=== PATIENT | male | born 1995 ===

== ENCOUNTER 2018-06-20 15:25 | Emergency (ER) | payer SELFPAY ==
[2018-06-20 15:31] VITALS: BP 133/90
--- NOTE | 2018-06-20 16:03 | ER Report ---
History and Physical Time Seen By MD: 15:56 Hx. of Stated Complaint: hives starting 4 days ago starting on left arm. pt now has generalized hives waist up. HPI/ROS CHIEF COMPLAINT: rash HISTORY OF PRESENT ILLNESS: Pt started with a round rash on left antecubital area o1-2 week ago. Started 4 days ago with diffuse rash on arms, back and torso. Rash is not itching. pt has had a cold for last day or so of occasional cough, runny nose and some nausea. No fevers. no chills. Rash is not itchy. REVIEW OF SYSTEMS: Constitutional: No fever, no chills. Eyes: No discharge. ENT: + runny nose, No sore throat. Cardiovascular: No chest pain, no palpitations. Respiratory: + cough, no shortness of breath. Gastrointestinal: No abdominal pain, no vomiting. Genitourinary: No hematuria. Musculoskeletal: No back pain. Skin: + rashes. Neurological: No headache. Allergies: Coded Allergies: Pertussis Vaccines (Verified Allergy, Severe, 06/20/18) Home Meds Active Scripts Ketoconazole (KETOCONAZOLE) 15 Gm Cream..g., 15 GM TP BID, #15 TUBE Apply to left anticubital large ring lesion twice a day for 2 weeks Prov:KAREL SOUZA V DO 06/20/18 Itraconazole (ITRACONAZOLE) 100 Mg Capsule, 200 MG PO DAILY for 7 Days, #14 CAPSULE Prov:LIBBYKAREL Peggy DO 06/20/18 Past Medical/Surgical History pmhx: neg Pshx: ankle surgery Reviewed Nurses Notes: Yes Hx Smoking: No Hx Alcohol Use: Yes Constitutional Vital Sign - Last 24 Hours 06/20/18 15:31 Temp 98.3 Pulse 102 Resp 18 B/P (MAP) 133/90 Pulse Ox 96 O2 Delivery Room Air Physical Exam General Appearance: The patient is alert, has no immediate need for airway protection and no signs of toxicity. Eyes: Pupils equal and round no pallor or injection, EOMI ENT: no pharyngeal erythema or exudates, Mucous membranes are moist, TM are nl b/l Respiratory: There are no retractions, lungs are clear to auscultation. Cardiovascular: Regular rate and rhythm. pulses are equal and symmetrical Gastrointestinal: Abdomen is soft and non tender, no masses, bowel sounds normal, no guarding, no rigidity or rebound Neurological: Cranial nerves II-XII grossly intact, no sensory or motor loss Skin: Warm and dry, + round raised erythematous boarder rash on left antecubital area that measures 2cm diameter, diffuse red macular papular rash diffuse neck, torso, extremities; rash is not in groin or scalp or palms. Musculoskeletal: Neck is supple non tender, no vertebral tenderness Extremities are nontender, non swollen and have full range of motion. DIFFERENTIAL DIAGNOSIS: After history and physical exam differential diagnosis was considered for tinea corporis, dermatophtid reaction, urticaria, viral examthem, eczema Medical Decision Making Data Points Result Diagram: 06/20/18 1604 06/20/18 1604 Laboratory Hematology Test 06/20/18 15:48 06/20/18 16:04 Influenza Virus Type A (PCR) Negative (NEGATIVE) Influenza Virus Type B (PCR) Negative (NEGATIVE) Red Blood Count 5.50 M/uL (4.00-5.60) Mean Corpuscular Volume 87.3 fL (80.0-96.0) Mean Corpuscular Hemoglobin 30.3 pg (26.0-33.0) Mean Corpuscular Hemoglobin Concent 34.7 g/dL (32.0-36.0) Red Cell Distribution Width 13.9 % (11.5-14.5) Mean Platelet Volume 7.8 fL (7.2-11.1) Neutrophils (%) (Auto) 64.8 % (39.4-72.5) Lymphocytes (%) (Auto) 25.6 % (17.6-49.6) Monocytes (%) (Auto) 7.9 % (4.1-12.4) Eosinophils (%) (Auto) 1.1 % (0.4-6.7) Basophils (%) (Auto) 0.6 % (0.3-1.4) Nucleated RBC Relative Count (auto) 0.0 /100WBC Neutrophils # (Auto) 4.4 K/uL (2.0-7.4) Lymphocytes # (Auto) 1.7 K/uL (1.3-3.6) Monocytes # (Auto) 0.5 K/uL (0.3-1.0) Eosinophils # (Auto) 0.1 K/uL (0.0-0.5) Basophils # (Auto) 0.0 K/uL (0.0-0.1) Nucleated RBC Absolute Count (auto) 0.00 K/uL Sodium Level 139 mmol/L (137-145) Potassium Level 3.8 mmol/L (3.5-5.0) Chloride Level 99 mmol/L (98-107) Carbon Dioxide Level 33 mmol/L (22-30) Blood Urea Nitrogen 14 mg/dl (9-21) Creatinine 1.10 mg/dl (0.66-1.25) Glomerular Filtration Rate Calc > 60.0 Random Glucose 131 mg/dl (75-110) Calcium Level 9.3 mg/dl (8.4-10.2) Phosphorus Level 2.9 mg/dl (2.5-4.5) Albumin 4.5 g/dl (3.5-5.0) Chemistry Test 06/20/18 15:48 06/20/18 16:04 Influenza Virus Type A (PCR) Negative (NEGATIVE) Influenza Virus Type B (PCR) Negative (NEGATIVE) White Blood Count 6.8 k/uL (4.5-11.0) Red Blood Count 5.50 M/uL (4.00-5.60) Hemoglobin 16.7 g/dL (14.0-18.0) Hematocrit 48.0 % (42.0-52.0) Mean Corpuscular Volume 87.3 fL (80.0-96.0) Mean Corpuscular Hemoglobin 30.3 pg (26.0-33.0) Mean Corpuscular Hemoglobin Concent 34.7 g/dL (32.0-36.0) Red Cell Distribution Width 13.9 % (11.5-14.5) Platelet Count 244 K/uL (150-450) Mean Platelet Volume 7.8 fL (7.2-11.1) Neutrophils (%) (Auto) 64.8 % (39.4-72.5) Lymphocytes (%) (Auto) 25.6 % (17.6-49.6) Monocytes (%) (Auto) 7.9 % (4.1-12.4) Eosinophils (%) (Auto) 1.1 % (0.4-6.7) Basophils (%) (Auto) 0.6 % (0.3-1.4) Nucleated RBC Relative Count (auto) 0.0 /100WBC Neutrophils # (Auto) 4.4 K/uL (2.0-7.4) Lymphocytes # (Auto) 1.7 K/uL (1.3-3.6) Monocytes # (Auto) 0.5 K/uL (0.3-1.0) Eosinophils # (Auto) 0.1 K/uL (0.0-0.5) Basophils # (Auto) 0.0 K/uL (0.0-0.1) Nucleated RBC Absolute Count (auto) 0.00 K/uL Glomerular Filtration Rate Calc > 60.0 Calcium Level 9.3 mg/dl (8.4-10.2) Phosphorus Level 2.9 mg/dl (2.5-4.5) Albumin 4.5 g/dl (3.5-5.0) ED Course/Re-evaluation ED Course check labs Labs stable. Will d/c pt home for treatment of tinea corporis with possible dermatophtid reaction (ID). 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 Decision to Disposition Date: Jun 20, 2018 Decision to Disposition Time: 16:46 Depart Departure Latest Vital Signs Vital Signs Date Time Temp Pulse Resp B/P (MAP) Pulse Ox O2 Delivery O2 Flow Rate FiO2 06/20/18 15:31 98.3 102 18 133/90 96 Room Air Impression: Primary Impression: Tinea corporis Additional Impressions: Dermatophytid Id reaction Condition: Condition Unchanged Disposition: HOME OR SELF-CARE New Scripts Itraconazole (ITRACONAZOLE) 100 Mg Capsule 200 MG PO DAILY for 7 Days, #14 CAPSULE Prov: KAREL SOUZA V DO 06/20/18 Ketoconazole (KETOCONAZOLE) 15 Gm Cream..g. 15 GM TP BID for 14 Days, #15 TUBE 1 Refill Prov: KAREL SOUZA V DO 06/20/18 Ketoconazole (KETOCONAZOLE) 15 Gm Cream..g. 15 GM TP BID, #15 TUBE Apply to left anticubital large ring lesion twice a day for 2 weeks Prov: KAREL SOUZA V DO 06/20/18 Itraconazole (ITRACONAZOLE) 100 Mg Capsule 200 MG PO DAILY for 7 Days, #14 CAPSULE Prov: LAURORA,KAREL V DO 06/20/18 Patient Instructions: Tinea Corporis (ED) Additional Instructions: You have a fungal infection. Apply Ketoconazole cream to the larger lower brule area in left arm for 2 weeks. Take itraconazole 200mg pill once a day for 7 days. Symptoms should improve in next 2-3 weeks. Return for any new symptoms Problem Qualifiers KAREL SOUZA DO Jun 20, 2018 16:03
[2018-06-20 16:12] LABS: PLATELET COUNT, AUTOMATED 244 K/uL (150-450)
[2018-06-20] MEDS ORDERED: FLUCONAZOLE 150 MG TAB PO ONE (16:45)
[2018-06-20] MEDS ORDERED: ITRA100C9 PO ×2 (16:51→16:58)
[2018-06-20] MEDS ORDERED: KETC15T TP ×2 (16:51→16:58)
== END 2018-06-20 17:04 | disposition home or self-care (01) ==
LOC: ER 15:36
DX: B35.4 Tinea corporis (principal); L30.2 Cutaneous autosensitization
CPT/HCPCS: 82040; 82310; 82374; 82435; 82565; 82947; 84100; 84132; 84295; 84520; 85025; 87502; 99283

== ENCOUNTER 2018-07-02 22:27 | Emergency (ER) | payer SELFPAY ==
[~2018-07-02 22:27] MED LIST changes: -CEPH500T7 PO; -KET200 PO; -LIT300CAP PO; -NEOM1PAC11 ASDIRECTED; -NEOM28.424 TP; -NIC10R INH; -NICOTROL CARTRIDGE PO
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
--- NOTE | 2018-07-02 23:17 | RADIOLOGY IMAGING REPORT ---
FACILITY: [facility] [place] PATIENT NAME: Anthony Zamudio : 1995 MR: [id number] V: [id number] EXAM DATE: ORDERING PHYSICIAN: ESTELLA LORD TECHNOLOGIST: Location: [facility] Patient: Anthony Zamudio : 1995 Visit/Account:[id number] Date of Sevice: 07/02/2018 INDICATION: Finger laceration. EXAM DATE: 07/02/2018 10:35 PM COMPARISON: None. FINDINGS: 3 views right hand. Mineralization is normal. No acute alignment abnormality or fracture. Soft tissu e irregularity overlying the proximal interphalangeal joint of the small finger may represent reporte d laceration. No radiopaque foreign body. IMPRESSION: Suspected soft tissue injury over the proximal interphalangeal joint of the right small finger. No radiopaque foreign body or acute osseous abnormality. Report Dictated By: Greg Barrera MD at 07/02/2018 11:11 PM Report E-Signed By: Greg Barrera MD at 07/02/2018 11:13 PM WSN:[id number]
[2018-07-02] MEDS ORDERED: CEPH500T7 PO (23:28)
[2018-07-02 23:30] VITALS: BP 119/87
[2018-07-03] MEDS ORDERED: EMS NS 0.9%(*) 1000 ML BAG 1,000 ML IV ONE (04:50)
== END 2018-07-02 23:51 ==
LOC: ER 22:34
DX: S61.210A Laceration without foreign body of right index finger without damage to nail, initial encounter (principal); S61.212A Laceration without foreign body of right middle finger without damage to nail, initial encounter; S61.216A Laceration without foreign body of right little finger without damage to nail, initial encounter; X99.1XXA Assault by knife, initial encounter
CPT/HCPCS: 96360; 99283

== ENCOUNTER → 2018-07-02 | Outpatient (CLI) | payer SELFPAY ==
[~2018-07-02] MED LIST: CEPH500T7 PO; ITRA100C9 PO; KET200 PO; KETC15T TP; LIT300CAP PO; NEOM1PAC11 ASDIRECTED; NEOM28.424 TP; NIC10R INH; NICOTROL CARTRIDGE PO
== END ==
LOC: AMB 22:10
PROVIDERS: ATTEND Nurse Practitioner
DX: S61.011A Laceration without foreign body of right thumb without damage to nail, initial encounter (principal); S61.210A Laceration without foreign body of right index finger without damage to nail, initial encounter; S61.214A Laceration without foreign body of right ring finger without damage to nail, initial encounter
CPT/HCPCS: A0425; A0427

== ENCOUNTER 2018-07-03 11:54 | Emergency (ER) | payer SELFPAY ==
[~2018-07-03 11:54] MED LIST changes: +CEPH500T7 PO
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
[2018-07-03 12:53] LABS: PLATELET COUNT, AUTOMATED 250 K/uL (150-450)
[2018-07-03 13:30] VITALS: BP 120/60
== END 2018-07-03 14:28 ==
LOC: ER 12:18
DX: R45.851 Suicidal ideations (principal); F33.1 Major depressive disorder, recurrent, moderate; F12.10 Cannabis abuse, uncomplicated
CPT/HCPCS: 80305; 80320; 80329; 81001; 82040; 82247; 82310; 82374; 82435; 82565; 82947; 83735; 84075; 84132; 84155; 84295; 84443; 84450; 84460; 84520; 85025; 99284

== ENCOUNTER 2018-07-03 13:46 | Inpatient (IN) | payer SELFPAY ==
[~2018-07-03] VITALS: Ht 180.3 cm; Wt 76.2 kg
[2018-07-03 14:35] VITALS: BP 122/82
[2018-07-03] MEDS ORDERED: hydrOXYzine PAMOATE 25 MG CAP PO PRN (14:45)
[2018-07-03] MEDS ORDERED: MAG HYD/AL HYD/SIMETH 30ML UDC PO PRN (14:45)
[2018-07-03] MEDS: ACETAMINOPHEN 325 MG TAB PO PRN (15:39)
[2018-07-03] MEDS ORDERED: CEPHALEXIN MONO 500 MG CAP PO ONE (15:45)
[2018-07-03] MEDS ORDERED: DIAZEPAM 10 MG TAB PO PRN (18:40)
[2018-07-03] MEDS: CEPHALEXIN MONO 500 MG CAP PO SCH (21:17)
[2018-07-03 21:39] VITALS: BP 122/86
[2018-07-04 08:15] VITALS: BP 118/74
[2018-07-04] MEDS: MULTIVITAMINS PO SCH (08:21)
[2018-07-04] MEDS: CEPHALEXIN MONO 500 MG CAP PO SCH ×3 (08:22→20:43)
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
[2018-07-04] MEDS: LITHIUM CARBONATE 300 MG CAP PO SCH ×2 (12:05→20:43)
[2018-07-04] MEDS: IBUPROFEN 600 MG TAB PO PRN ×2 (12:33→18:56)
[2018-07-04] MEDS: KETOCONAZOLE 200 MG TAB PO SCH (14:28)
[2018-07-04] MEDS: ACETAMINOPHEN 325 MG TAB PO PRN (14:29)
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
[2018-07-05] MEDS: LITHIUM CARBONATE 300 MG CAP PO SCH ×2 (08:32→21:28)
[2018-07-05] MEDS: MULTIVITAMINS PO SCH (08:32)
[2018-07-05] MEDS: CEPHALEXIN MONO 500 MG CAP PO SCH ×3 (08:33→21:28)
[2018-07-05] MEDS: IBUPROFEN 600 MG TAB PO PRN ×2 (08:33→21:28)
[2018-07-05] MEDS: KETOCONAZOLE 200 MG TAB PO SCH (08:33)
--- NOTE | 2018-07-05 09:26 | BHS Progress Note ---
BHS - Subjective Progress Notes Subjective "I didn't sleep that well last night." Slept 5 hours, denies nightmares, auditory hallucinations "a week ago" Was drinking 1/2 Vodka daily x 1 month Right hand pain 6/10 Depression 8/10, anxiety 5/10 Last thoughts of hurting self yesterday, denies specific plan Denies stable housing upon release Previous rehab - first age 12, second age 15, both in [place] Eight months ago IV drug use, meth and heroin since age 15 y.o. Suicidal Ideation: None Homicidal Ideation: None BHS - Objective Physical Exam Vital Signs Vital Signs Date Time Temp Pulse Resp B/P (MAP) Pulse Ox O2 Delivery O2 Flow Rate FiO2 07/04/18 08:15 98.8 82 16 118/74 (89) 96 Room Air Deferred Medications (Trade) Dose Ordered Sig/Dipesh Route PRN Reason Start Time Stop Time Status Last Admin Dose Admin Acetaminophen (Tylenol(*)325 Mg Tab (Or Equiv)) 650 mg Q4H PRN PO HEADACHE 07/03/18 14:45 08/02/18 14:44 07/04/18 14:29 Cephalexin Monohydrate (Keflex Monohydrate(*) 500 Mg Cap (Or Equiv)) 500 mg TODAY ONCE PO 07/03/18 15:45 07/03/18 15:46 DC 07/03/18 15:55 Diazepam (Valium(*) 10 Mg Tab (Or Equiv)) GIVE 10-20MG Q 1H ... Q1H PRN PO FOLLOW CIWA PROTOCOL 07/03/18 18:40 07/17/18 18:39 07/03/18 19:01 Ibuprofen (Motrin (*) 600 Mg Tab (Or Equiv)) 600 mg Q6H PRN PO PAIN 07/03/18 18:40 08/02/18 18:39 07/05/18 08:33 Ketoconazole (Nizoral 200 Mg Tab (Or Equiv)) 200 mg QDAY PO 07/04/18 14:30 08/01/18 14:29 07/05/18 08:33 Sewaren Carbonate (Sewaren Carbonate 300 Mg Cap) 300 mg BID PO 07/04/18 11:10 08/03/18 11:09 07/05/18 08:32 Multivitamins (Thera-M Enhanced Tab (Or Equiv)) 1 each QDAY PO 07/04/18 09:00 08/03/18 08:59 07/05/18 08:32 Muscle Strength and Tone: WNL Gait and Station: Steady BHS Medications Reviewed: Side Effects, Benefits of Medication Allergies Reviewed: Yes Mental Status Exam General Appearance: Casual, Well Groomed, Good Eye Contact, Cooperative, Polite, Good Interaction Speech: Clear, Spontaneous, Normal Rate, Normal Rhythm, Normal Volume, Normal Tone Mood: Dysthmic/Depressed (rating depression 7/10) Affect: Full and Appropriate, Calm Thought Process: Organized, Logical, Goal Directed Thought Content: No Suicidal Ideation, No Homicidal Ideation, No Delusions, No Auditory Halllucinations, No Thought Broadcasting, No Ideas of Reference, No Obsessions Sensorium: Clear Cognition: Alert & Oriented-Person, Alert & Oriented-Place, Alert & Oriented- Time, Wssbu-Epffnpyo-Swohaeiss Memory: Immediate, Recent, Remote Intelligence: Average Insight Judgment: Intact, Appropriate Additional Findings/Notes: Current Medications Medications (Trade) Dose Ordered Sig/Dipesh Route PRN Reason Start Time Stop Time Status Last Admin Dose Admin Acetaminophen (Tylenol(*)325 Mg Tab (Or Equiv)) 650 mg Q4H PRN PO HEADACHE 07/03/18 14:45 08/02/18 14:44 07/04/18 14:29 Al Hydrox/Mg Hydrox/Simethicone (Maalox(*) 30 ml Udcup (Or Equiv)) 30 ml Q4H PRN PO DYSPEPSIA 07/03/18 14:45 08/02/18 14:44 Multivitamins (Thera-M Enhanced Tab (Or Equiv)) 1 each QDAY PO 07/04/18 09:00 08/03/18 08:59 07/05/18 08:32 Hydroxyzine Pamoate (Vistaril(*) 25 Mg Cap (Or Equiv)) 50 mg Q6H PRN PO ANXIETY/INSOMNIA 07/03/18 14:45 08/02/18 14:44 Cephalexin Monohydrate (Keflex Monohydrate(*) 500 Mg Cap (Or Equiv)) 500 mg TID PO 07/03/18 21:00 07/12/18 09:01 07/05/18 08:33 Cephalexin Monohydrate (Keflex Monohydrate(*) 500 Mg Cap (Or Equiv)) 500 mg TODAY ONCE PO 07/03/18 15:45 07/03/18 15:46 DC 07/03/18 15:55 Diazepam (Valium(*) 10 Mg Tab (Or Equiv)) GIVE 10-20MG Q 1H ... Q1H PRN PO FOLLOW CIWA PROTOCOL 07/03/18 18:40 07/17/18 18:39 07/03/18 19:01 Ibuprofen (Motrin (*) 600 Mg Tab (Or Equiv)) 600 mg Q6H PRN PO PAIN 07/03/18 18:40 08/02/18 18:39 07/05/18 08:33 Sewaren Carbonate (Sewaren Carbonate 300 Mg Cap) 300 mg BID PO 07/04/18 11:10 08/03/18 11:09 07/05/18 08:32 Ketoconazole (Nizoral 200 Mg Tab (Or Equiv)) 200 mg QDAY PO 07/04/18 14:30 08/01/18 14:29 07/05/18 08:33 [facility] Assessment and Plan [id number] Encounter Date: Jul 05, 2018 [id number] Encounter Time: 09:23 [facility] Plan: Admit to Unit, Necessary Precautions, Individual/Group Therapy, Admin/Titrate Meds Multpiple Antipsychotics Used: No Problems: (1) Bipolar disorder, unspecified Condition Continue Sewaren 300mg po bid, obtain level Maintain precautions Treatment team 07/06/18 ANTONIO HUTSON NP Jul 05, 2018 09:26
[2018-07-05] MEDS ORDERED: NEOMYCIN/POLYMYX/BACITR 30 GM TP PRN (09:55)
[2018-07-05 10:05] VITALS: BP 124/70
[2018-07-06] MEDS: LITHIUM CARBONATE 300 MG CAP PO SCH (07:56)
[2018-07-06] MEDS: CEPHALEXIN MONO 500 MG CAP PO SCH ×3 (07:56→20:48)
[2018-07-06] MEDS: KETOCONAZOLE 200 MG TAB PO SCH (07:56)
[2018-07-06] MEDS: MULTIVITAMINS PO SCH (07:56)
--- NOTE | 2018-07-06 15:35 | BHS Progress Note ---
S - Subjective Progress Notes Subjective Pt seen in treatment team with staff. Pt says his mood is good today, he rates depression at 0/10 and anxiety at 0/10. Denies SI. Denies alcohol cravings. Tolerating lithium well, denies n/v/d. He said he was worried about one of his fingers, where he has sutures, that the flap of skin "is dying." We looked at it and the skin in question has good cap refill-- there is some bruising. Pt is still somewhat pressured, and verbally impulsive. Somewhat hyperactive-- is busy about the unit, using the phone a lot. Denies racing thoughts, no AH, s lept a little better last night. We will increase lithium to 900 mg per day, giving the whole dose at bedtime. Continue keflex and ketoconazole. Suicidal Ideation: None Homicidal Ideation: None S - Objective Physical Exam Vital Signs Vital Signs 07/05/18 10:05 Temp 98.4 Pulse 79 Resp 16 B/P (MAP) 124/70 (88) Pulse Ox 97 O2 Delivery Room Air Muscle Strength and Tone: WNL Gait and Station: Steady BHS Medications Reviewed: Side Effects, Benefits of Medication Allergies Reviewed: Yes Mental Status Exam General Appearance: Casual, Well Groomed, Good Eye Contact, Cooperative, Polite, Good Interaction Speech: Clear, Spontaneous, Normal Rate, Normal Rhythm, Normal Volume, Normal Tone Mood: Dysthmic/Depressed (rating depression 7/10) Affect: Full and Appropriate, Calm Thought Process: Organized, Logical, Goal Directed Thought Content: No Suicidal Ideation, No Homicidal Ideation, No Delusions, No Auditory Halllucinations, No Visual Hallucinations, No Thought Broadcasting, No Ideas of Reference, No Obsessions, No Compulsions, No Other Sensorium: Clear Cognition: Alert & Oriented-Person, Alert & Oriented-Place, Alert & Oriented- Time, Cbani-Qugeifyw-Hyqiqgmdp Memory: Immediate, Recent, Remote Intelligence: Average Insight Judgment: Intact, Appropriate, Fair [facility] Assessment and Plan Gudf-ut-Ozex Encounter Date: Jul 06, 2018 Brty-td-Madw Encounter Time: 10:00 [facility] Plan: Admit to Unit, Necessary Precautions, Individual/Group Therapy, Admin/Titrate Meds Multpiple Antipsychotics Used: No Problems: (1) Bipolar disorder, unspecified CRISTHIAN CORRALES MD Jul 06, 2018 15:35
[2018-07-06] MEDS ORDERED: NICOTINE CARTRIDGE 1 EA PO PRN (20:25)
[2018-07-06] MEDS ORDERED: NICOTINE INH SYSTEM 10 MG/INH INH PRN (20:25)
[2018-07-06] MEDS ORDERED: LITHIUM CARBONATE 300 MG CAP PO ONE (21:00)
[2018-07-07] MEDS: CEPHALEXIN MONO 500 MG CAP PO SCH (08:26)
[2018-07-07] MEDS: KETOCONAZOLE 200 MG TAB PO SCH (08:26)
[2018-07-07] MEDS: MULTIVITAMINS PO SCH (08:26)
[2018-07-07] MEDS ORDERED: LIT300CAP PO (08:57)
[2018-07-07] MEDS ORDERED: KET200 PO (08:58)
[2018-07-07] MEDS ORDERED: NIC10R INH (08:59)
[2018-07-07] MEDS ORDERED: NICOTROL CARTRIDGE PO (08:59)
[2018-07-07] MEDS ORDERED: NEOM1PAC11 ASDIRECTED (09:00)
[2018-07-07] MEDS ORDERED: NEOM28.424 TP (09:04)
[2018-07-07] MEDS ORDERED: LITHIUM CARBONATE 300 MG CAP PO SCH (21:00)
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
== END 2018-07-07 10:34 | disposition home or self-care (01) | DRG 885 ==
LOC: BHS 13:46
PROVIDERS: ADMIT Psychiatry & Neurology Psychiatry; ATTEND Psychiatry & Neurology Psychiatry
DX: F30.13 Manic episode, severe, without psychotic symptoms (principal); R45.851 Suicidal ideations; F15.11 Other stimulant abuse, in remission; F11.11 Opioid abuse, in remission; F16.11 Hallucinogen abuse, in remission; F43.12 Post-traumatic stress disorder, chronic; F12.20 Cannabis dependence, uncomplicated; Z62.810 Personal history of physical and sexual abuse in childhood; Z62.811 Personal history of psychological abuse in childhood; Z91.5 Personal history of self-harm; Z81.8 Family history of other mental and behavioral disorders; Z88.7 Allergy status to serum and vaccine; Z59.0 Homelessness